=== PATIENT | male | born 1995 | race African-American/Black ===

== ENCOUNTER 2021-04-06 12:18 | Emergency (ER) | payer SELFPAY ==
[~2021-04-06] VITALS: Ht 190.5 cm; Wt 90.7 kg
[2021-04-06] MEDS ORDERED: LEVETIRACETAM 500MG/5ML VIAL 1,000 MG in SODIUM CHLORIDE 0.9% 100 ML IV ONE (12:30)
[2021-04-06 13:34] VITALS: BP 119/68
== END 2021-04-06 13:38 | disposition home or self-care (01) ==
LOC: ER 12:24
DX: G40.909 Epilepsy, unspecified, not intractable, without status epilepticus (principal)
CPT/HCPCS: 99283; J1953; J7050

== ENCOUNTER 2021-06-08 12:05 | Emergency (ER) | payer SELFPAY ==
[~2021-06-08] VITALS: Ht 190.5 cm; Wt 90.7 kg
[2021-06-08] MEDS ORDERED: TETANUS/DIPHTHERIA TOX ADULT 0.5 ML SYR IM ONE (12:15)
== END 2021-06-08 12:50 | disposition home or self-care (01) ==
LOC: ER 12:09
DX: S01.112A Laceration without foreign body of left eyelid and periocular area, initial encounter (principal); W22.8XXA Striking against or struck by other objects, initial encounter; Y92.008 Other place in unspecified non-institutional (private) residence as the place of occurrence of the external cause; G40.909 Epilepsy, unspecified, not intractable, without status epilepticus
CPT/HCPCS: 90471; 90714; 99282